=== PATIENT | female | born 2000 | race Caucasian/White ===

== ENCOUNTER 2020-05-17 23:13 | Emergency (ER) | payer OTHER ==
[~2020-05-17] VITALS: Ht 177.8 cm; Wt 72.6 kg
[2020-05-17] MEDS ORDERED: MICROGESTIN 211 EACH (23:28)
== END 2020-05-18 00:54 | disposition home or self-care (01) ==
LOC: ER 23:13
DX: R07.89 Other chest pain (principal)
CPT/HCPCS: 71046; 93005; 93010; 99285-25